=== PATIENT | male | born 1980 | race Caucasian/White ===

== ENCOUNTER 2023-01-11 17:17 | Emergency (ER) | payer BC, SELFPAY ==
[2023-01-11] VITALS (16 sets, daily range): BP systolic 157–226; BP diastolic 90–131; PULSE 59–87; RESP 13–22; TEMP 36.8; O2SAT 99–100
--- NOTE | ~2023-01-11 | XR_ITS ---
EXAMINATION: XR chest 1V portable Exam Date/Time: 01/11/2023 18:00 PATIENT SUPPORT TECH HISTORY: rule out infectious cause of hyperglycemia Comparison: 10/10/2009. RESULT: Lines, tubes, and devices: None. Lungs and pleura: Clear. Low lung volumes with crowding. Cardiomediastinal silhouette: Stable. Other: No acute osseous or upper abdominal finding. IMPRESSION: No acute cardiopulmonary process. Reviewed, dictated and finalized at location K. ENT SUPPORT TECH
--- NOTE | ~2023-01-11 | CT_ITS ---
EXAMINATION: CT brain wo con DATE: 01/11/2023 18:22 INDICATION: hypertension, JASSO . TECHNIQUE: Computed tomography (CT) of the head was performed without intravenous contrast. The mA wa s adjusted according to patient size. Iterative reconstruction technique was employed. The dose-lengt h product was 605.33 mGy-cm. COMPARISON: None. FINDINGS: No acute intracranial hemorrhage or extra-axial fluid collection. No hydrocephalus, mass, or herniation. No acute ischemic infarct. Unremarkable dural venous sinus attenuation. No acute osseous abnormality. Mucosal thickening in the ethmoid air cells, the remaining aerated spaces are clear. Mild atrophy. Mild atherosclerotic intracranial calcification. Old left basal ganglia lacunar infarct . IMPRESSION: No acute intracranial process. Reviewed, dictated and finalized at location K. [employer]ESIOLOGISTS[employer] ASSIST[employer]
--- NOTE | 2023-01-11 17:30 | ED.GENADULT ---
HPI - General Adult General Chief complaint: Recheck/Abnormal Lab/Rx <Leon Díaz PA-C - Last Filed: 01/11/23 22:06> Stated complaint: High BP <ESCOBAR Gonzalez Last Filed: 01/11/23 22:06> Time Seen by Provider: 01/11/23 17:27 <Leon Díaz PA-C - Last Filed: 01/11/23 22:06> Mode of arrival: ambulatory <ESCOBAR Gonzalez Last Filed: 01/11/23 22:06> Limitations: no limitations <Leon Díaz PA-C - Last Filed: 01/11/23 22:06> History of Present Illness HPI narrative: This is a 42-year-old male who comes in with chief complaint of high blood sugar and high pretension. He arrives from urgent care who is doing a screening for his work exam. They sent him for new onset hyperglycemia and hypertensive urgency. During history taking patient is largely asymptomatic but does note a dull headache ongoing today. Denies chest pain, shortness of breath, vision changes, lightheadedness, dizziness, numbness or weakness. He also denies polydipsia, polyuria, polyphagia. He has known history of hypertension and takes a combo lisinopril hydrochlorothiazide pill. States he has been taking this regularly. He denies any further complaints. <Leon Díaz PA-C - Last Filed: 01/11/23 22:06> Related Data Allergies/adverse reactions: Allergies Allergy/AdvReac Type Severity Reaction Status Date / Time nitrous oxide Allergy Vomiting Verified 01/11/23 17:45 <Leon Díaz PA-C - Last Filed: 01/11/23 22:06> Review of Systems Review of Systems: CONSTITUTIONAL: Denies fever, chills, or sweats. EYES: Denies visual changes, redness, or discharge. ENT: Denies rhinorrhea, congestion, sore throat, or otalgia. CARDIOVASCULAR: Denies chest pain, palpitations, or edema. RESPIRATORY: Denies cough or dyspnea. GASTROINTESTINAL: Denies abdominal pain, nausea, vomiting, or diarrhea. GENITOURINARY: Denies dysuria or hematuria. SKIN: Denies rash or itching. MUSCULOSKELETAL: Denies back pain, joint pain, or myalgia. NEUROLOGIC: Endorses headache. Denies numbness, dizziness, or weakness. PSYCHIATRIC: Denies anxiety or depression. <Leon Díaz PA-C - Last Filed: 01/11/23 22:06> Exam Narrative: GENERAL: Well-appearing, well-nourished, and in no acute distress. HEAD: Normocephalic, atraumatic. EYES: PERRLA and EOMI. ENT: Nares clear, no rhinorrhea or epistaxis. Mucous membranes moist. Oropharynx without tonsillar hypertrophy exudate or other lesions. NECK: Supple. No adenopathy or masses. CHEST: No respiratory distress. Clear to auscultation. No wheezes rales or rhonchi HEART: Regular rate and rhythm. No murmur heard. Normal peripheral pulses. ABDOMEN: Soft, nontender, nondistended, normal active bowel sounds. EXTREMITIES: Normal range of motion. No edema. SKIN: Warm, dry, no rash. NEURO: Alert and oriented x3. No focal deficits. PSYCH: Normal mood and affect. <Leon Díaz PA-C - Last Filed: 01/11/23 22:06> Course SKULL GRINDER/PA Physician Supervision For this encounter, I have reviewed the mid-level provider documentation, treatment plan and medical decision making. I have had [id number] time with the patient. 42-year-old male sent the emergency for evaluation after being seen in urgent care and found to have high blood pressure. the patient denies chest pain, difficulty breathing or neurologic symptoms. Patient's hypertension is asymptomatic. Lab work had already been ordered which showed an elevated glucose without evidence of DKA/ HHS. Patient may have undiagnosed diabetes. He was given IV fluids. patient was started on metformin with primary care follow-up. His workup here showed an elevated glucose . All questions answered. Patient in agreement w/ disposition. <Chan Vargas MD - Last Filed: 01/12/23 20:23> Vital Signs Vital signs: Vital Signs Temperature 98.2 F 01/11/23 17:19 Pulse Rate 72 01/11/23 17:19 Respiratory Rate 18 01/11/23 17:19 Blood Pressure 223
--- NOTE | 2023-01-11 17:32 | ECG_ITS ---
Measurements Intervals [place] Rate: 71 P: 15 MD: 168 QRS: 13 QRSD: 80 T: 33 QT: 387 QTc: 423 Interpretive Statements SINUS RHYTHM DIFFUSE J-POINT ELEVATION, CONSIDER EARLY REPOLARIZATION ABNORMALITY, ACUTE PERICARDITIS, MYOCARDIAL INJURY ABNORMAL ECG NO PREVIOUS ECG AVAILABLE FOR COMPARISON Electronically Signed On 01-12-2023 14:36:43 LOG PEELER by Meño Gonzalez M.D.
--- NOTE | 2023-01-11 17:43 | PC.NURSE ---
Patient sugar at 1744 was 338. CHERIE Mcclain made aware.
[2023-01-11 17:45] LABS: Glucose Point of Care 338 mg/dl (65-105)
[2023-01-11] MEDS: LABETALOL HCL INJ 100 MG/20 ML VIAL 20 MG IV PUSH ×2 (18:07→18:32)
[2023-01-11 18:10] LABS: Fractional Inspired Oxygen 21 %; HCO3 VBG 26.5 mEq/l (24.0-30.0); PCO2 VBG 41.4 mmHg (42.0-48.0); PO2 VBG 43.6 mmHg (35.0-45.0)
[2023-01-11 18:12] LABS: Device ROOM AIR; pH VBG 7.424 (7.300-7.400)
[2023-01-11] MEDS: SODIUM CHLORIDE 0.9% IV 1,000 ML 999 ML IV CONT ×2 (18:12)
--- NOTE | 2023-01-11 18:12 | PC.NURSE ---
Pt to CT scan via stretcher at this time. NS infusing. Given urinal.
[2023-01-11 18:14] LABS: Basophils Absolute Auto 0.1 K/mm3 (0.0-0.1); Basophils Percent Auto 0.4 % (0.2-1.2); Eosinophils Absolute Auto 0.1 K/mm3 (0-0.3); Hematocrit 45.3 % (42.0-52.0); Hemoglobin 15.3 g/dL (14.0-18.0); Immature Granulocyte Absolute 0.11 K/mm3 (0.00-0.031); Immature Granulocyte Percent A 0.8 % (0-0.5); Lymphocytes Absolute Auto 2.13 K/mm3 (0.9-3.2); Lymphocytes Percent Auto 15.3 % (18.3-44.2); Mean Corpuscular HGB Conc 33.8 g/dl (32-36); Mean Corpuscular Hemoglobin 28.2 pg (26-34); Mean Corpuscular Volume 83.6 fl (80-100); Mean Platelet Volume 10.1 fl (7.4-10.4); Monocytes Percent Auto 6.8 % (2.6-8.5); Neutrophils Absolute Auto 10.5 K/mm3 (1.3-6.7); Neutrophils Percent Auto 75.7 % (45.5-73.1); Platelet Count Result 334 k/mm3 (150-375); Red Blood Count 5.42 M/mm3 (4.6-6.20); Red Cell Distribution Width 13.4 % (11.5-14.5); White Blood Count 13.9 K/mm3 (4.5-10.0)
[2023-01-11 18:22] LABS: Alanine Aminotransferase 26 U/L (6-50); Albumin Level 4.5 g/dL (3.5-5.1); Alkaline Phosphatase 115 U/L (38-126); Anion Gap 6 mmol/L (8-16); Aspartate Amino Transferase 21 U/L (17-59); Bilirubin,Total 0.7 mg/dL (0.2-1.3); Blood Urea Nitrogen 11 mg/dL (9-20); Calcium 9.2 mg/dL (8.4-10.2); Carbon Dioxide 29 mmol/L (22-30); Chloride 100 mmol/L (98-107); Estimated CRCL calculation 170 ml/min; Estimated Glomerular Filt Rate > 60; Glucose 325 mg/dL (65-110); Potassium 3.7 mmol/L (3.4-5.0); Sodium 135 mmol/L (137-145)
[2023-01-11 18:49] LABS: Appearance Urine Clear (Clear); Bilirubin Urine Negative (Negative); Blood Urine Negative (Negative); Color Urine Yellow (Yellow); Glucose Urine UA 2+ mg/dL (Negative); Ketones Urine Negative (Negative); Leukocyte Esterase Ur Negative LEU/UL (Negative); Nitrate Urine Negative (Negative); Protein Urine Negative (Negative); Urobilinogen Urine 0.2 mg/dL (<2.0)
[2023-01-11 18:54] LABS: Bacteria Urine Trace /hpf; RBC Urine 0-2 /hpf (0-2); WBC Urine 0-3 /hpf
[2023-01-11 18:55] LABS: Add Urine Microscopic? YES
[2023-01-11 19:17] LABS: Glucose Point of Care 276 mg/dl (65-105)
== END 2023-01-11 20:07 | disposition home or self-care (01) ==
PROVIDERS: Emergency Provider Physician Assistant
DX: R73.9 Hyperglycemia, unspecified (principal); I16.0 Hypertensive urgency; I10 Essential (primary) hypertension; R94.31 Abnormal electrocardiogram [ECG] [EKG]
CPT/HCPCS: 36415; 70450; 71045; 80053; 81001; 82803; 82948; 85025; 93005; 96361; 96374; 99284; J7030